=== PATIENT | female | born 1955 | race Caucasian/White ===

== ENCOUNTER 2018-08-14 06:39 | Observation (INO) | payer OTHER ==
[2018-08-14] MEDS ORDERED: NS 1,000 ML IV ONE (06:42)
[2018-08-14 07:12] LABS: PLATELET COUNT 234 10^3/uL (150-400)
[2018-08-14 07:23] LABS: INR 0.96 (0.83-1.16); PROTIME(PATIENT) 12.4 SEC (12.0-15.0)
[2018-08-14] MEDS ORDERED: BUPIVACAINE 0.5% 30 ML SDV ONE (07:42)
[2018-08-14] MEDS ORDERED: HEPARIN 10,000 UNIT/10 ML MDV (1,000 UNIT/ML) ONE (07:42)
[2018-08-14] MEDS ORDERED: LIDOCAINE 1% 5 ML SDV ONE (07:43)
[2018-08-14] MEDS ORDERED: ISOPROTERENOL HCL/D5W 0.2 MG/50 ML BAG IV ONE (07:46)
[2018-08-14] MEDS ORDERED: SCOPOLAMINE HYDROBROMIDE 1 MG/3 DAYS PATCH TD ONE (08:06)
[2018-08-14] MEDS ORDERED: MIDAZOLAM 2 MG/2 ML VIAL IVP ONE (08:06)
--- NOTE | 2018-08-14 08:08 | PDANEPAE ---
ANE History of Present Illness 62 yo for svt ablation ANE Past Medical History - Cardiovascular History Hx Hypertension: No Hx Arrhythmias: Yes Hx Chest Pain: No Hx Coronary Artery / Peripheral Vascular Disease: No Hx CHF / Valvular Disease: No Hx Palpitations: No - Pulmonary History Hx COPD: No Hx Asthma/Reactive Airway Disease: No Hx Recent Upper Respiratory Infection: No Hx Oxygen in Use at Home: No Hx Sleep Apnea: No ANE Review of Systems Review of Systems: - Exercise capacity METS (RN): 4 METS ANE Patient History - Allergies Allergies/Adverse Reactions: Sulfa (Sulfonamide Antibiotics) Allergy (Verified 08/08/18 09:36) Rash - Home Medications Home medications: home medication list seen and reviewed Home Medications: Acetaminophen [Tylenol 325mg (*)] 325 mg PO Q6 PRN 08/08/18 [Last Taken Unknown] Aspirin [Aspirin 81mg (*)] 81 mg PO DAILY 08/08/18 [Last Taken 08/12/18] Atorvastatin Calcium [Lipitor 20 mg (*)] 20 mg PO DAILY 08/08/18 [Last Taken ] Calcium Carbonate [Oyster Shell Calcium 500 mg (*)] 500 mg PO DAILY 08/08/18 [ Last Taken 08/12/18] Cholecalciferol Vit D3 [Vitamin D3 (*)] 1,000 units PO DAILY 08/08/18 [Last Taken 08/12/18] Diltiazem HCl [Cartia Xt] 120 mg PO DAILY 08/08/18 [Last Taken 08/07/18] Herbals/Supplements -Info Only 1 ea PO DAILY 08/08/18 [Last Taken 08/12/18] Multivitamins [Multivitamin (*)] 1 each PO DAILY 08/08/18 [Last Taken 08/12/18] Eureka-3 Fatty Acids [Fish Oil 1000 mg (*)] 1,000 mg PO DAILY 08/08/18 [Last Taken 08/12/18] - NPO status NPO Status: no food or drink >8 hours - Smoking Hx Smoking Status: Never smoked ANE Labs/Vital Signs - Labs Result Diagrams: 08/14/18 07:06 08/14/18 07:06 - Vital Signs Height: 5 ft 4.17 in Weight: 56.7 kg ANE Physical Exam - Airway Neck exam: FROM Mallampati Score: Class 2 Mouth exam: normal dental/mouth exam - Pulmonary Pulmonary: no respiratory distress - Cardiovascular Cardiovascular: regular rate and rhythym - ASA Status ASA Status: II ANE Anesthesia Plan Anesthesia Plan: general endotracheal anesthesia
[2018-08-14] MEDS ORDERED: SCOPOLAMINE HYDROBROMIDE 1 MG/3 DAYS PATCH TD SCH (08:15)
[2018-08-14] MEDS ORDERED: fentaNYL 100 MCG/2 ML INJ ONE (08:21)
[2018-08-14] MEDS ORDERED: PROPOFOL/EMULSION 500 MG/50 ML BOTTLE IV ONE (08:21)
[2018-08-14] MEDS ORDERED: REMIFENTANIL HCL 1 MG VIAL ONE (08:21)
--- NOTE | 2018-08-14 08:34 | PDGENHP ---
History & Physical Chief Complaint: SVT History of Present Illness: Symptomatic adenosine sensitive SVT Relevant Physical Exam: A&Ox4, no apparent distress, lungs CTA, regular rate and rhythm, S1, S2, pulses 2+ bilaterally, no edema Cardiorespiratory Assessment: Proceed with SVT ablation as planned for today
[2018-08-14] MEDS ORDERED: ePHEDrine SULFATE 25 MG/5 ML SYR ONE (09:40)
[2018-08-14] MEDS ORDERED: ROCURONIUM 50 MG/5 ML VIAL ONE (09:40)
[2018-08-14] MEDS ORDERED: VASOPRESSIN 20 UNIT/ML VIAL ONE (09:40)
[2018-08-14] MEDS ORDERED: ONDANSETRON 4 MG/2 ML VIAL ONE (09:41)
[2018-08-14] MEDS ORDERED: SUGAMMADEX SODIUM 200 MG/2 ML VIAL IVP ONE (10:37)
[2018-08-14] MEDS ORDERED: ACETAMINOPHEN 325 MG TAB PO PRN (12:01)
--- NOTE | 2018-08-14 12:01 | EPPROC ---
Electrophysiology Procedure Note: ELECTROPHYSIOLOGIC STUDY AND CATHETER MEDIATED ABLATION OF SLOW/FAST AV SUSU REENTRY TACHYCARDIA PROCEDURES PERFORMED: 34742-47 EP evaluation with RA/RV/LA pace/record, with arrhythmia induction 88767-08 EP evaluation with RA/RV pace record, insert/reposition catheter, with arrhythmia induction 47033 Intracardiac catheter ablation, SVT arrhythmogenic focus 33838 3D mapping Fluoroscopy INDICATION: Symptomatic adenosine sensitive SVT PROCEDURE: Catheters & Anesthesia: The patient arrived in the Electrophysiology Laboratory in the fasting state. The right clavicular region, right groin, and left groin area were prepped and draped in the usual sterile manner. Anesthesiologist Dr. Boggs administered general anesthesia. Appropriate non-invasive blood pressure, pulse oximetry and end-tidal CO2 monitoring was established. All catheters were placed percutaneously using the modified Seldinger technique , and advanced into position under fluoroscopic guidance. One #6 Gabonese hexapolar non-deflectable electrode catheter was inserted into the right atrial appendage via the left femoral vein (2mm spacing; except the proximal ring which was 25cm from the tip used for unipolar recordings). One #7 Gabonese deflectable octapolar electrode catheter was advanced to the His-bundle position via the left femoral vein (2mm spacing). One #7 Gabonese deflectable quadrapolar catheter was advanced to the anteroseptal right ventricle via the right femoral vein. One #7 Gabonese deflectable catheter with 10 pairs of electrodes was placed via the right femoral vein into the coronary sinus. Heparin was given to keep ACT > 200 s. Programmed stimulation was performed from the right atrium, right ventricle and coronary sinus (left atrium). Parahisian pacing demonstrated constant H-A interval with changing V-A intervals and stimulus-A intervals during capture and loss of capture of proximal RBB proving retrograde conduction over AV node. 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 Ventricular extrastimuli delivered during tachycardia without altering antegrade His bundle activation did not advance next atrial potential, indicating that the tachycardia was not utilizing an accessory pathway for retrograde conduction. VA interval was 10 ms. Post entrainment of the tachycardia from the ventricle, there was VAHV response. Mapping of the right atrium and coronary sinus during AVNRT identified earliest atrial activation above the tendon of Kiara at a level slightly posterior to the level of the His bundle, consistent with retrograde conduction over the fast AV susu pathway. A #8 Gabonese deflectable quadrapolar electrode catheter (2mm-5mm-2mm spacing) with 4 mm tip electrode and sensor for the 3D mapping Carto system was advanced to the right atrium. 3 D mapping of the inter-atrial septum and coronary sinus was performed and location of the AV node was marked. A Mobi sheath was used. RF applications were delivered to the region between the tricuspid annulus and the coronary sinus ostium, at the level of the upper edge of the coronary sinus ostium. Radiofrequency applications were also delivered along the roof of the proximal coronary sinus. Junctional rhythm occurred during all of the RF applications. Post ablation slower AVNRT was inducible, this was ablated at anteroapical edge of CS. 3 distinct slow AV susu pathways were ablated CS ostium, TA at upper edge of CS, TA at lower edge of CS. Programmed stimulation was continued post ablation at baseline and during graded doses of isoproterenol upto2 mcg/min. Sustained AVNRT was not inducible. The catheters were removed. Sheaths were removed in EP lab after subQ suture . The patient was transferred to the cardiovascular holding area in stable condition. There were no apparent complications. Results: A. Spontaneous Intervals: Pre ablation SCL 670 ms AH 65 ms HV 45 ms Post ablation SCL 610 ms AH 65 ms HV 45 ms B. Antegrade AV susu function (decremental pacing) Pre ablation FPERP 410 ms SPERP 400 ms WBB CL 390 ms (AH jump from 170 ms to 360 ms at FPERP) Post ablation FPERP 390 ms WBB CL 380 ms, longest AH C. Retrograde AV susu function (decremental pacing) Pre ablation FPERP 390 ms WBB CL 380 ms D. Arrhythmias: Sustained slow/fast AVNRT Cycle length 350 ms, AH interval 310 ms, SCOTT interval 40 ms VA interval 10 ms CONCLUSIONS 1. 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 ( Slow/fast AVNRT). 2. Successful ablation of the slow AV susu pathway with elimination of 1:1 antegrade conduction over the slow AV susu pathway, all retrograde conduction over the slow AV susu pathway and the inducibility of AVNRT. 3. No complications. Patient Problems: Problems Problem Status Onset Supraventricular tachycardia Acute
--- NOTE | 2018-08-14 12:18 | POSTANESTH ---
Post Anesthetic Evaluation Cardiovascular Status: Normal, Stable Respiratory Status: Normal, Stable Level of Consciousness/Mental Status: Can Participate in Eval Pain Control: Adequate, Prn Tx Ordered Nausea/Vomiting Control: Adequate, Prn Tx Ordered Complications Possibly Related to Anesthesia: None Noted
[2018-08-15 04:35] LABS: PLATELET COUNT 212 10^3/uL (150-400)
[2018-08-15 04:47] LABS: INR 0.99 (0.83-1.16); PROTIME(PATIENT) 12.7 SEC (12.0-15.0)
[2018-08-15 07:10] VITALS: BP 93/60
[2018-08-15] MEDS ORDERED: ASPIRIN 81 MG CHEWABLE TAB PO SCH (09:00)
--- NOTE | 2018-08-15 10:25 | ASDISCHSUM ---
Discharge Information Plan Status:Home with No Needs Medically Cleared to Leave: Discharge Date: CM D/C Disposition: ADT D/C Disposition:Home, Routine, Self-Care Projected Discharge Date: Transportation at D/C: Discharge Delay Reason: Follow-Up Date: Discharge Slot: Final Diagnosis: Placement Information Patient Contact Information Contact Name:HALIMA Relationship: Address:[address] City:[place] Alternate Phone: State/Zip Code:[place] [address] Email: Financial Information [facility] Desc:[facility] [employer] [facility] Primary Plan Number:[id number] Secondary Plan Desc: Secondary Plan Number: Assessment Information LACE LACE Length of stay for Answers: Less than 1 day current admission Comorbidities - select Answers: Other Notes: HLD all that apply # of Emergency department Answers: 0 visits in the last 6 months Score: 1 Date Signed: 08/15/2018 10:22 AM Electronically Signed By:Marge Gustafson Case Management Discharge Plan Note Case Management Discharge Discharge Order Complete? Answers: Yes Patient to Obtain Answers: via Family Medications Transportation Arranged Answers: Family/Friends Family Notified Answers: Yes Notes: Pt called Discharge Comments Notes: Pt is being D/Cd today independently to home. Her will help her with ADLs until she is cleared by cardiology. No CM needs identified. She called her for a ride home. Date Signed: 08/15/2018 10:24 AM Electronically Signed By:Marge Gustafson Intervention Information
--- NOTE | 2018-08-15 10:38 | GDS ---
[f rep st] DISCHARGE SUMMARY SUPERVISING HEARING CARE PRACTITIONER: Cliff Tyler. ADMISSION DIAGNOSIS: Supraventricular tachycardia, adenosine sensitive. DISCHARGE DIAGNOSES: AV noa re-entrant tachycardia, status post successful catheter-mediated ablat ion. PROCEDURES PERFORMED: 1. Electrocardiogram. 2. Echocardiogram. 3. Electrophysiology study. 4. AVNRT ablation. HOSPITAL COURSE: Patient presented 08/14/2018 for electrophysiology study in the setting of symptoma tic recurrent episodes of adenosine sensitive SVT. EP study demonstrated AV noa re-entrant tachyca rdia using the slow AV noa pathway for antegrade conduction, and the fast AV noa pathway for retr ograde conduction. She underwent successful ablation of the slow AV noa pathway with elimination o f 1:1 antegrade conduction and with successful elimination of any inducibility of AVNRT with Dr. Mary Tyler without any intra-procedure complications. She has done very well in the postprocedure settin g and she is appropriate and stable for discharge home today. PHYSICAL EXAMINATION: GENERAL: Alert and oriented x4. No apparent distress. VITAL SIGNS: Blood p ressure 93/60, heart rate 60, respiratory rate 14, SpO2 96% on room air, temp 36.6 degrees Celsius. RESPIRATORY: Lungs are clear to auscultation without adventitious breath sounds. CARDIAC: Regular rate and rhythm, S1, S2. ABDOMEN: Normoactive bowel sounds times all 4 quadrants. No masses or ten derness. Soft to palpation. SKIN: [place], warm, dry without cyanosis, clubbing, or peripheral edema. EXTREMITIES: Bilateral pursestring sutures removed intact without evidence of redness, oozing, hem atoma, swelling, or erythema to the site. Pulses are 2+ bilaterally. No edema. LABORATORY STUDIES: Drawn this morning demonstrate stable CBC and BMP compared to preprocedure. Tro ponin is 0.294, please note that this is to be expected in the postprocedural setting. PROCEDURES PERFORMED DURING HOSPITALIZATION: Electrophysiology study and AVNRT ablation as mentioned above. Preliminary review of echocardiogram this morning demonstrates normal left ventricular systo lic function without new wall motion abnormalities or pericardial effusion. Electrocardiogram this m orning demonstrates normal sinus rhythm without new NM interval, ST or T-wave abnormalities. DISCHARGE DISPOSITION: Patient will be discharged home in stable condition. She is under activity r estrictions as below. DISCHARGE MEDICATIONS: Please see discharge medication reconciliation sheet for full details. Pleas e note, the patient will continue aspirin 81 mg daily uninterrupted for the next 6 weeks. DISCHARGE INSTRUCTIONS: Post AVNRT ablation instructions were reviewed with patient in detail. 1. We discussed activity restrictions including avoidance of lifting more than 10 pounds for the nex t 10 days. 2. She will get up and walk around every 45 minutes for 45 days. 3. We reviewed bleeding precautions, medication compliance, monitoring for signs and symptoms of inf ection, and monitoring for sustained arrhythmia. At the time of discharge, the patient verbalized understanding regarding all discharge instructions w ithout questions or concerns. She will follow up with our EP Clinic in 4 weeks and she will contact [facility] with any new or concerning symptoms prior to her upcoming followup visit. TIME SPENT ON DISCHARGE: Greater than 30 minutes. /[id number]/MODL
--- NOTE | 2018-08-15 14:54 | ECHO ---
[email or web address] [address] [address] Main: [phone] Echocardiography Examination Transthoracic Name: JAIMEE SHELDON MR#: [id number] Study Date: 08/15/2018 Study Time: 08:08 AM Date of : 1955 Age: 62 year(s) Height: 162.6 cm (64 in.) Weight: 56.7 kg (125 lb.) BSA: 1.6 m2 Gender: Female Examination: Echo Contrast: Image Quality: Adequate Rhythm: Heart Rate: BP: 93 mmHg/60 mmHg Indication: F/U post EP study Procedure Staff Referring Physician: Electrical Laboratory Technician: Brandi Granado [facility] Reading Physician: Richard Martin MD Requesting Provider: Ordering Physician: Cliff Tyler MD Indication: F/U post EP study Measurements Chambers AV/MV Label Value Normal Value Label Value Normal Value LVDd, 2D 4.4 cm (3.9cm - 5.3cm) AR PHT 0.58 s LVDs, 2D 2.7 cm (2.1cm - 4cm) AR PHT 581 ms IVSd, 2D 0.4 cm (0.6cm - 1.1cm) AR Vmax 3.73 m/s LVPWd, 2D 0.6 cm AV PGmax 5 mmHg LVEF, 2D 69 % (54% - 74%) AV PGmean 3 mmHg TAPSE 2.22 cm AV Vmax 1.14 m/s LA Volume, BP 38 ml (22ml - 52ml) MV E Vmax 0.86 m/s LADs, 2D 3.1 cm (2.7cm - 3.8cm) MV A Vmax 0.71 m/s LAESV index, BP 23.8 ml/m2 MV E/A 1.21 Additional Vessels MV E/E' lateral 8 Label Value Normal Value MV E/E' septal 9.5 (0.45 - 1.25) AoAsc 3.2 cm MV E' septal 0.09 m/s AoRoot, MM 3.2 cm (2.2cm - 3.7cm) MV E' lateral 0.11 m/s MV E/E' mean 8.6 MV E' mean 0.1 m/s TV/PV Label Value Normal Value RA Pressure 5 mmHg RVSP 28 mmHg Patient: JAIMEE SHELDON Study Date: 08/15/2018 Page 1 of 3 08:08 AM TR Pmax 23 mmHg TR Vmax 2.41 m/s Conclusions Normal left ventricular size and function. LVEF estimated to be 65-70%. Normal left ventricular free wall thickness and wall motion. Normal diastolic function. Normal LA, RA and RV dimensions. Prominent Chiari network noted in the RA. Intact interatrial septum. Normal-appearing valvular structures. Mild mitral and tricuspid regurgitation with normal estimated RVSP at 28 mmHg. The patient had a previous study on 06/11/2018. There has been essentially no change. Findings Left Ventricle: Left ventricle is normal in size. Normal global systolic left ventricular function. EF range is estimated at 65 % - 70 %. Left ventricle wall thickness is normal. There are no regional wall motion abnormalities. Left ventricular diastolic function parameters are normal. IVS: The septum is intact. Right Ventricle: Normal size right ventricle. Right ventricular systolic function is normal. Left Atrium: The left atrium is normal in size. IAS: Normal appearing atrial septum. Right Atrium: The right atrium is normal in size. There is a prominent Chiari network discernible in right atrium. Mitral Valve: Mitral valve is normal in appearance. Mild mitral regurgitation. No mitral valve stenosis. Aortic Valve: Aortic leaflets exhibit normal cuspal separation. No aortic valve regurgitation. There is no aortic stenosis. The aortic valve is trileaflet. Tricuspid Valve: Tricuspid valve leaflets are normal in appearance and function. Mild tricuspid regurgitation. No tricuspid valve stenosis. Right Ventricular systolic pressure is measured at 28 mmHg. Pulmonary artery pressure normal. Pulmonic Valve: Pulmonic valve is poorly visualized. No pulmonic valve regurgitation is evident. There is no pulmonic valve stenosis. Aorta: The aorta is normal. The aortic root size in M-mode measures 3.2 cm. The ascending aorta measures 3.2 cm. Aorta Measurements AoRoot, MM is 3.2 cm. Pericardium: No pericardial effusion. No pleural effusion present. Exam Details Procedure Ordered: Echo Procedure Status: Routine study Image Quality: Adequate Facility Location: Cardiac Echo 1 (No Signature Object) Patient: JAIMEE SHELDON Study Date: 08/15/2018 Page 2 of 3 08:08 AM Patient: JAIMEE SHELDON Study Date: 08/15/2018 Page 3 of 3 08:08 AM [id number]
--- NOTE | 2018-08-17 11:46 | CPEKG ---
Test Reason : OPEN Blood Pressure : / mmHG Vent. Rate : 061 BPM Atrial Rate : 061 BPM P-R Int : 130 ms QRS Dur : 098 ms QT Int : 421 ms P-R-T Axes : 046 069 052 degrees QTc Int : 424 ms Sinus rhythm Low voltage, precordial leads Confirmed by Jasbir Moseley ([id number]) on 08/17/2018 11:45:36 AM Referred By: Cliff Tyler Confirmed By:Jasbir Moseley
--- NOTE | 2018-08-17 11:48 | CPEKG ---
Test Reason : OPEN Blood Pressure : / mmHG Vent. Rate : 084 BPM Atrial Rate : 085 BPM P-R Int : 146 ms QRS Dur : 089 ms QT Int : 386 ms P-R-T Axes : 072 074 055 degrees QTc Int : 457 ms Sinus rhythm Low voltage, precordial leads Confirmed by Jasbir Moseley ([id number]) on 08/17/2018 11:48:26 AM Referred By: Cliff Tyler Confirmed By:Jasbir Moseley
--- NOTE | 2018-08-17 11:54 | CPEKG ---
Test Reason : OPEN Blood Pressure : / mmHG Vent. Rate : 056 BPM Atrial Rate : 055 BPM P-R Int : 142 ms QRS Dur : 079 ms QT Int : 410 ms P-R-T Axes : 072 064 044 degrees QTc Int : 396 ms Sinus rhythm Low voltage, precordial leads Confirmed by Jasbir Moseley ([id number]) on 08/17/2018 11:54:04 AM Referred By: Clfif Tyler Confirmed By:Jasbir Moseley
== END 2018-08-15 10:50 | disposition home or self-care (01) ==
LOC: FCATH 06:39 → F2W 11:21
PROVIDERS: ADMIT Internal Medicine Cardiovascular Disease; ATTEND Internal Medicine Cardiovascular Disease
DX: I47.1 Supraventricular tachycardia (principal)
CPT/HCPCS: 93005; 93306; 93613; 93621; 93623; 93653; C1730; C1732; G0378; C1731; C1766; J1644; J2250; J2405; J2704; J3010